=== PATIENT | male | born 1960 | race Two or more races ===

== ENCOUNTER 2018-06-10 06:47 | Emergency (ER) | payer BC, OTHER ==
[~2018-06-10] VITALS: Ht 177.8 cm; Wt 99.8 kg
[2018-06-10 07:22] VITALS: BP 141/58
[2018-06-10] MEDS: KETOROLAC TROMETH 60MG/2ML VIAL IM ONE (07:49)
[2018-06-10 07:56] LABS: Urine Bacteria FEW /hpf (None Seen); Urine Blood Negative /uL (Negative); Urine Specific Gravity 1.013 (1.001-1.035); Urine WBC <1 /hpf (0 - 3)
== END 2018-06-10 10:01 | disposition home or self-care (01) ==
LOC: ER 06:50
DX: N50.812 Left testicular pain (principal); N50.811 Right testicular pain; G89.29 Other chronic pain; N39.0 Urinary tract infection, site not specified; I10 Essential (primary) hypertension
CPT/HCPCS: 76870; 81001; 96372; 99284; J1885